=== PATIENT | male | born 1955 | race Asian ===

== ENCOUNTER 2020-12-03 13:07 | Inpatient (IN) | payer OTHER, BC ==
[2020-12-03 13:13] VITALS: BMI 27.7
[2020-12-03 14:02] LABS: BASO % 0.5 % (0-2.0); EOS % 2.4 % (0-4.5); HEMATOCRIT 49.2 % (35.4-49); LYMPH % 19.9 % (8-40); MCH 31.1 pg (25.7-33.7); MCHC 34.6 g/dl (32.0-35.9); MEAN CELL VOLUME 89.7 fl (80-96); MEAN PLT VOLUME 8.7 fl (7.5-11.1); MONO % 9.4 % (3.8-10.2); NEUT % 67.8 % (42.8-82.8); PLATELET COUNT 158 K/MM3 (134-434); RBC 5.49 M/mm3 (4.00-5.60); RDW 13.4 % (11.9-15.9); WHITE BLOOD COUNT 10.2 K/mm3 (4.0-10.0)
[2020-12-03 14:40] LABS: POTASSIUM 4.2 mmol/L (3.5-5.1)
[2020-12-03 14:44] LABS: ALBUMIN 4.2 g/dl (3.4-5.0); BLOOD UREA NITROGEN 19.4 mg/dL (7-18); MAGNESIUM 2.1 mg/dL (1.8-2.4)
[2020-12-03 14:47] LABS: CREATININE 1.1 mg/dL (0.55-1.3); PHOSPHOROUS 4.1 mg/dL (2.5-4.9)
[2020-12-03 14:49] LABS: BILIRUBIN,TOTAL 0.6 mg/dL (0.2-1); TOT PROT 7.6 g/dl (6.4-8.2)
[2020-12-03 20:39] LABS: N-TERMINAL BNP 456.1 pg/ml (5-125)
[2020-12-04 08:27] LABS: BASO % 0.4 % (0-2.0); EOS % 3.8 % (0-4.5); HEMATOCRIT 48.6 % (35.4-49); HEMOGLOBIN 16.7 GM/dL (11.7-16.9); LYMPH % 20.6 % (8-40); MCH 31.3 pg (25.7-33.7); MCHC 34.3 g/dl (32.0-35.9); MEAN CELL VOLUME 91.3 fl (80-96); MEAN PLT VOLUME 9.3 fl (7.5-11.1); MONO % 11.8 % (3.8-10.2); NEUT % 63.4 % (42.8-82.8); PLATELET COUNT 138 K/MM3 (134-434); RBC 5.32 M/mm3 (4.00-5.60); RDW 13.3 % (11.9-15.9); WHITE BLOOD COUNT 7.3 K/mm3 (4.0-10.0)
[2020-12-04 08:51] LABS: POTASSIUM 4.3 mmol/L (3.5-5.1)
[2020-12-04 08:53] LABS: CALCIUM 9.1 mg/dL (8.5-10.1)
[2020-12-04 08:54] LABS: BLOOD UREA NITROGEN 21.2 mg/dL (7-18)
[2020-12-04 08:59] LABS: TOT PROT 7.3 g/dl (6.4-8.2)
[2020-12-04] MEDS ORDERED: PNEUMOC 13-VAL CONJ-DIP CRM/PF 0.5 ML DISP.SYRIN IM ONE (10:00)
[2020-12-04] MEDS ORDERED: METOPROLOL TARTRATE 50 MG TABLET (FP) PO SCH (10:00)
[2020-12-04] MEDS: ASPIRIN COATED 81 MG TABLET.EC PO SCH (10:48)
[2020-12-04] MEDS: ENOXAPARIN NA (PORCINE) 40 MG/0.4 ML DISP.SYRIN SQ SCH (10:48)
[2020-12-04] MEDS: SACUBITRIL/VALSARTAN 24 MG-26 MG TABLET PO SCH ×2 (12:39→22:13)
[2020-12-04] MEDS: metFORMIN HCL 500 MG TABLET (FP) PO SCH (16:43)
[2020-12-04] MEDS: INSULIN (NOVOLOG) ASPART 100 UNITS/ML 10ML VIAL SQ SCH (16:43)
[2020-12-04] MEDS: sitaGLIPtin PHOSPHATE 50 MG TABLET PO SCH (17:56)
[2020-12-04] MEDS ORDERED: PATIENT'S OWN MEDICATION (NON-FORMULARY) (Sitagliptin Phos/Metformin Hcl [Janumet 50-1,000 PO SCH (22:00)
[2020-12-04] MEDS: ATORVASTATIN CA 10 MG TABLET (FP) PO SCH (22:13)
[2020-12-05] MEDS: sitaGLIPtin PHOSPHATE 50 MG TABLET PO SCH ×2 (06:18→17:23)
[2020-12-05] MEDS: metFORMIN HCL 500 MG TABLET (FP) PO SCH ×2 (06:18→17:23)
[2020-12-05] MEDS: INSULIN (NOVOLOG) ASPART 100 UNITS/ML 10ML VIAL SQ SCH ×3 (06:19→17:24)
[2020-12-05] MEDS: ASPIRIN COATED 81 MG TABLET.EC PO SCH (09:27)
[2020-12-05] MEDS: ENOXAPARIN NA (PORCINE) 40 MG/0.4 ML DISP.SYRIN SQ SCH (09:27)
[2020-12-05] MEDS: SACUBITRIL/VALSARTAN 24 MG-26 MG TABLET PO SCH ×2 (09:28→21:19)
[2020-12-05] MEDS ORDERED: PT OWN MED DRAWER 7, Y5N ONE (20:57)
[2020-12-05] MEDS: ATORVASTATIN CA 10 MG TABLET (FP) PO SCH (21:19)
[2020-12-06] MEDS: sitaGLIPtin PHOSPHATE 50 MG TABLET PO SCH ×2 (06:13→17:21)
[2020-12-06] MEDS: metFORMIN HCL 500 MG TABLET (FP) PO SCH ×2 (06:13→17:21)
[2020-12-06] MEDS: INSULIN (NOVOLOG) ASPART 100 UNITS/ML 10ML VIAL SQ SCH ×3 (06:13→17:08)
[2020-12-06] MEDS ORDERED: PT OWN MED DRAWER 7, Y5N ONE ×2 (09:31→15:17)
[2020-12-06] MEDS: ENOXAPARIN NA (PORCINE) 40 MG/0.4 ML DISP.SYRIN SQ SCH (09:34)
[2020-12-06] MEDS: ASPIRIN COATED 81 MG TABLET.EC PO SCH (09:34)
[2020-12-06] MEDS: SACUBITRIL/VALSARTAN 24 MG-26 MG TABLET PO SCH (09:34)
[2020-12-06] MEDS ORDERED: EPLERENONE 25 MG TABLET PO SCH (12:00)
[2020-12-06 18:12] VITALS: BP 112/65; PULSE 47; TEMP 98.1
[2020-12-07] MEDS ORDERED: VANCOMYCIN 1 GM in D5W (PRE-DOCKED) 1,000 MG/250 ML IVPB ONE (08:00)
== END 2020-12-06 18:45 | disposition short-term general hospital (02) | DRG 309 ==
LOC: JER 13:07 → JERBED 13:46 → J4W 18:28
PROVIDERS: ADMIT Internal Medicine; ATTEND Internal Medicine
DX: I45.2 Bifascicular block (principal); I50.22 Chronic systolic (congestive) heart failure; M62.82 Rhabdomyolysis; I44.1 Atrioventricular block, second degree; R00.1 Bradycardia, unspecified; I10 Essential (primary) hypertension; I42.9 Cardiomyopathy, unspecified; M54.12 Radiculopathy, cervical region; E11.9 Type 2 diabetes mellitus without complications; R55 Syncope and collapse; E78.5 Hyperlipidemia, unspecified; R42 Dizziness and giddiness
CPT/HCPCS: 36415; 71045-TC-FY; 80053; 82550; 82553; 82962; 83735; 83880; 84100; 84439; 84443; 84484; 85025; 93005; 93010; 93225; 93226; 93306-TC; 99285-25; C9803; U0003

== ENCOUNTER 2021-12-08 19:55 | Emergency (ER) | payer OTHER, BC ==
[2021-12-08 20:02] VITALS: BP 138/84; PULSE 71; TEMP 98; BMI 27.4
== END 2021-12-08 22:03 | disposition home or self-care (01) ==
LOC: JERFT 19:55
DX: S00.01XA Abrasion of scalp, initial encounter (principal); S80.02XA Contusion of left knee, initial encounter; S80.212A Abrasion, left knee, initial encounter; W22.8XXA Striking against or struck by other objects, initial encounter
CPT/HCPCS: 73562-TC-LT-FY; 99283-25

== ENCOUNTER 2022-06-08 23:10 | Observation (INO) | payer OTHER, BC ==
[2022-06-08] MEDS ORDERED: ACETAMINOPHEN 1000 MG/100 ML BAG IVPB ONE (23:45)
[2022-06-08] MEDS ORDERED: ACETAMINOPHEN INJECTION 100 ML IVPB ONE (23:56)
[2022-06-09 00:24] LABS: BASO % 0.6 % (0-2.0); EOS % 4.3 % (0-4.5); HEMATOCRIT 48.8 % (35.4-49); HEMOGLOBIN 16.6 GM/dL (11.7-16.9); LYMPH % 28.4 % (8-40); MCH 31.3 pg (25.7-33.7); MEAN PLT VOLUME 8.4 fl (7.5-11.1); MONO % 12.8 % (3.8-10.2); NEUT % 53.9 % (42.8-82.8); PLATELET COUNT 141 10^3/uL (134-434); RDW 13.7 % (11.9-15.9); WHITE BLOOD COUNT 7.5 K/mm3 (4.0-10.0)
[2022-06-09] MEDS ORDERED: ASPIRIN 81 MG CHEWABLE TABLETS PO ONE ×2 (00:30→00:31)
[2022-06-09] MEDS ORDERED: ASPIRIN 81 MG CHEWABLE TABLETS ONE ×2 (00:34→10:39)
[2022-06-09 00:41] LABS: CHLORIDE 103 mmol/L (98-107); SODIUM 140 mmol/L (136-145)
[2022-06-09 00:43] LABS: CALCIUM 8.9 mg/dL (8.5-10.1)
[2022-06-09 00:44] LABS: ALBUMIN 4.1 g/dl (3.4-5.0); ANION GAP 9 MMOL/L (8-16); CO2 28 mmol/L (21-32); GLUCOSE,RANDOM 143 mg/dL (74-106)
[2022-06-09 00:47] LABS: CREATININE 1.1 mg/dL (0.55-1.3); SGOT/AST 30 U/L (15-37); SGPT/ALT 37 U/L (13-61)
[2022-06-09 00:48] LABS: TOT PROT 7.6 g/dl (6.4-8.2)
[2022-06-09 00:49] LABS: BILIRUBIN,TOTAL 0.5 mg/dL (0.2-1)
[2022-06-09 00:50] LABS: ALK PHOS 130 U/L (45-117)
[2022-06-09 00:52] LABS: N-TERMINAL BNP 133.4 pg/ml (5-125)
[2022-06-09] MEDS ORDERED: ATORVASTATIN CA 80 MG TABLET (FP) PO ONE (01:39)
[2022-06-09] MEDS ORDERED: ENOXAPARIN NA (PORCINE) 80 MG/0.8 ML DISP.SYRIN SQ ONE ×4 (01:40→13:40)
[2022-06-09] MEDS ORDERED: ATORVASTATIN CA 80 MG TABLET (FP) ONE ×2 (01:46→22:00)
[2022-06-09] MEDS ORDERED: ATORVASTATIN CA 10 MG TABLET (FP) PO ONE (01:57)
[2022-06-09] MEDS ORDERED: ATORVASTATIN CA 10 MG TABLET (FP) ONE (01:57)
[2022-06-09 02:02] LABS: ACTIVATED PTT 35.2 SECONDS (25.2-36.5); INR 1.02 (0.83-1.09); PROTHROMBIN TIME (PATIENT) 11.7 SEC (9.7-13.0)
[2022-06-09] MEDS ORDERED: ASPIRIN COATED 81 MG TABLET.EC PO SCH (10:00)
[2022-06-09] MEDS ORDERED: PATIENT'S OWN MEDICATION (NON-FORMULARY) (Empagliflozin [Jardiance] 10 MG Tablet) PO SCH (10:00)
[2022-06-09] MEDS ORDERED: SACUBITRIL/VALSARTAN 49 MG-51 MG TABLET PO SCH (10:00)
[2022-06-09 10:32] LABS: BASO % 0.6 % (0-2.0); EOS % 3.9 % (0-4.5); HEMATOCRIT 48.5 % (35.4-49); HEMOGLOBIN 16.5 GM/dL (11.7-16.9); LYMPH % 21.5 % (8-40); MEAN CELL VOLUME 90.9 fl (80-96); MEAN PLT VOLUME 8.6 fl (7.5-11.1); MONO % 9.4 % (3.8-10.2); NEUT % 64.6 % (42.8-82.8); PLATELET COUNT 139 10^3/uL (134-434); RBC 5.33 M/mm3 (4.00-5.60); RDW 13.7 % (11.9-15.9); WHITE BLOOD COUNT 6.6 K/mm3 (4.0-10.0)
[2022-06-09] MEDS ORDERED: metoPROLOL SUCCINATE 25 MG TAB.SR.24H (FP) PO ONE (10:39)
[2022-06-09] MEDS: metoPROLOL SUCCINATE 25 MG TAB.SR.24H (FP) PO SCH (10:45)
[2022-06-09] MEDS: ASPIRIN 81 MG CHEWABLE TABLETS PO SCH (10:45)
[2022-06-09 10:50] LABS: CHLORIDE 106 mmol/L (98-107); SODIUM 139 mmol/L (136-145)
[2022-06-09 10:53] LABS: ANION GAP 8 MMOL/L (8-16); BLOOD UREA NITROGEN 15.5 mg/dL (7-18); CO2 25 mmol/L (21-32); GLUCOSE,RANDOM 162 mg/dL (74-106)
[2022-06-09 10:55] LABS: CHOLESTEROL 143 mg/dL (50-200)
[2022-06-09 10:56] LABS: CREATININE 0.9 mg/dL (0.55-1.3); SGOT/AST 29 U/L (15-37); TRIGLYCERIDES 153 mg/dL (0-150)
[2022-06-09 10:57] LABS: LDL CHOLESTEROL (ONLY SJRH) 79 mg/dL (5-100); SGPT/ALT 37 U/L (13-61)
[2022-06-09 10:58] LABS: BILIRUBIN,TOTAL 0.8 mg/dL (0.2-1); HDL CHOLESTEROL 46 mg/dL (40-60); TOT PROT 7.1 g/dl (6.4-8.2)
[2022-06-09 11:15] LABS: ALK PHOS 89 U/L (45-117)
[2022-06-09] MEDS: EPLERENONE 25 MG TABLET PO SCH (11:23)
[2022-06-09] MEDS: ENOXAPARIN NA (PORCINE) 80 MG/0.8 ML DISP.SYRIN SQ SCH (13:44)
[2022-06-09] MEDS ORDERED: ATORVASTATIN CA 80 MG TABLET (FP) PO SCH (22:00)
[2022-06-09] MEDS: SACUBITRIL/VALSARTAN 49 MG-51 MG TABLET PO SCH (22:03)
[2022-06-09 23:31] VITALS: BMI 28.3
[2022-06-10] MEDS: ENOXAPARIN NA (PORCINE) 80 MG/0.8 ML DISP.SYRIN SQ SCH ×2 (01:00→14:54)
[2022-06-10] MEDS ORDERED: INSULIN (NOVOLOG) ASPART 100 UNITS/ML 10ML VIAL SQ SCH (07:00)
[2022-06-10] MEDS: ASPIRIN 81 MG CHEWABLE TABLETS PO SCH (09:38)
[2022-06-10] MEDS: metoPROLOL SUCCINATE 25 MG TAB.SR.24H (FP) PO SCH (09:38)
[2022-06-10] MEDS: EPLERENONE 25 MG TABLET PO SCH (09:39)
[2022-06-10] MEDS: SACUBITRIL/VALSARTAN 49 MG-51 MG TABLET PO SCH (09:39)
[2022-06-10 15:23] VITALS: RESP 18
[2022-06-10 18:41] VITALS: BP 140/79; PULSE 69; TEMP 98.1
== END 2022-06-10 18:54 | disposition home or self-care (01) ==
LOC: JER 23:10 → JERBED 06-09 05:01 → J4W 06-09 23:23
PROVIDERS: ADMIT Internal Medicine; ATTEND Internal Medicine
PROC: 3E033GC Introduction of Other Therapeutic Substance into Peripheral Vein, Percutaneous Approach (ICD-10-PCS; principal; 2022-06-09)
PROC: 3E013GC Introduction of Other Therapeutic Substance into Subcutaneous Tissue, Percutaneous Approach (ICD-10-PCS; 2022-06-09)
DX: R07.89 Other chest pain (principal); I10 Essential (primary) hypertension; I25.10 Atherosclerotic heart disease of native coronary artery without angina pectoris; I44.1 Atrioventricular block, second degree; I42.9 Cardiomyopathy, unspecified; I25.2 Old myocardial infarction; F41.9 Anxiety disorder, unspecified; M54.2 Cervicalgia; G89.29 Other chronic pain; R00.1 Bradycardia, unspecified; R42 Dizziness and giddiness; S80.212A Abrasion, left knee, initial encounter; S80.02XA Contusion of left knee, initial encounter; S00.01XA Abrasion of scalp, initial encounter; X58.XXXA Exposure to other specified factors, initial encounter; Y93.9 Activity, unspecified; Y92.9 Unspecified place or not applicable; Z86.79 Personal history of other diseases of the circulatory system; Z86.73 Personal history of transient ischemic attack (TIA), and cerebral infarction without residual deficits; Z79.82 Long term (current) use of aspirin; Z79.84 Long term (current) use of oral hypoglycemic drugs
CPT/HCPCS: 0241U-QW; 36415; 71045-TC-FY; 80053; 80061; 82962; 83036; 83880; 84484; 85025; 85610; 85730; 93005; 93010; 96372; 96374; 99285-25; G0378

== ENCOUNTER 2024-10-12 04:14 | Day surgery (SDC) | payer OTHER, BC ==
[2024-10-11 09:06] VITALS: BMI 27.7
[2024-10-12] MEDS ORDERED: CEFOXITIN SODIUM 2 GM IVPB ONE (07:14)
[2024-10-12] MEDS ORDERED: HEPARIN NA (PORCINE) 5,000 UNITS/ML 1ML VIAL ONE (07:14)
[2024-10-12] MEDS ORDERED: BUPIVACAINE HCL/PF 0.25% (2.5MG/ML) 10 ML VIAL ONE (07:14)
[2024-10-12] MEDS ORDERED: PROPOFOL 20 ML ONE (07:38)
[2024-10-12] MEDS ORDERED: LIDOCAINE HCL/PF 2% SDV 5ML VIAL ONE (07:38)
[2024-10-12] MEDS ORDERED: ROCURONIUM BROMIDE 50 MG/5 ML SYRINGE ONE (07:38)
[2024-10-12] MEDS ORDERED: BUPIVACAINE HCL/PF 0.5% (5MG/ML) 10 ML VIAL ONE (07:50)
[2024-10-12] MEDS ORDERED: MIDAZOLAM HCL 2 MG/2 ML SINGLE DOSE VIAL ONE (08:20)
[2024-10-12] MEDS ORDERED: ceFAZolin SODIUM 1 GM VIAL ONE (08:32)
[2024-10-12] MEDS: ceFAZolin SODIUM 1 GM VIAL IVPB ONE (08:37)
[2024-10-12] MEDS: BUPIVACAINE HCL/PF 0.5% (5 MG/ML) 30 ML VIAL IJ ONE ×2 (08:47)
[2024-10-12] MEDS ORDERED: SUGAMMADEX SODIUM 200 MG/2 ML VIAL ONE (10:05)
[2024-10-12] MEDS ORDERED: ONDANSETRON 4 MG/2 ML VIAL ONE (10:05)
[2024-10-12] MEDS ORDERED: oxyCODONE HCL 5 MG TABLET PO PRN (10:30)
[2024-10-12] MEDS ORDERED: ONDANSETRON 4 MG/2 ML VIAL IVPUSH PRN (10:30)
[2024-10-12 12:21] VITALS: RESP 16
[2024-10-12 14:32] VITALS: BP 115/59; PULSE 77; TEMP 97.8
== END 2024-10-12 14:30 | disposition home or self-care (01) ==
LOC: JASU-SURG 04:14
PROVIDERS: ATTEND Surgery
PROC: 0FT44ZZ Resection of Gallbladder, Percutaneous Endoscopic Approach (ICD-10-PCS; principal; 2024-10-12 08:00)
DX: K80.10 Calculus of gallbladder with chronic cholecystitis without obstruction (principal)
CPT/HCPCS: 82010; 82962; 86850; 86900; 86901; 88304-TC; 94760; J1644

== ENCOUNTER 2024-12-20 19:49 | Emergency (ER) | payer OTHER, BC ==
[2024-12-20] MEDS ORDERED: NOREPINEPHRINE BITARTRATE 4 MG/4 ML ML IV ONE (20:03)
[2024-12-20 20:12] VITALS: BMI 25.1
[2024-12-20] MEDS: NOREPINEPHRINE BITARTRATE/D5W 8 MG/250 ML BAG IVPB SCH (20:29)
[2024-12-20 20:56] LABS: ABSOLUTE IMMATURE GRANULOCYTES 0.07 x10^3/uL (0.0-0.031); BASOPHILS # 0.02 x10^3/uL (0.01-0.08); EOSINOPHIL % 0.4 % (0.8-7.0); EOSINOPHILS # 0.03 x10^3/uL (0.04-0.54); HEMATOCRIT 49.5 % (40.1-51.0); HEMOGLOBIN 15.2 g/dL (13.7-17.5); MCHC 30.7 g/dl (32.3-36.5); MEAN PLT VOLUME 11.8 fl (9.4-12.4); MONOCYTE # 0.98 x10^3/uL (0.30-0.82); MONOCYTE % 13.4 % (5.3-12.2); PLATELET COUNT # 112 x10^3/uL (163-337); RDW 14.2 % (12.2-16.6)
[2024-12-20 21:14] LABS: POTASSIUM 3.8 mmol/L (3.5-5.1)
[2024-12-20 21:16] LABS: CALCIUM 8.9 mg/dL (8.5-10.1)
[2024-12-20 21:17] LABS: ALBUMIN 3.1 g/dl (3.4-5.0); BLOOD UREA NITROGEN 17.8 mg/dL (7-18)
[2024-12-20 21:20] LABS: CREATININE 1.6 mg/dL (0.55-1.3)
[2024-12-20 21:22] LABS: BILIRUBIN,TOTAL 0.5 mg/dL (0.2-1); TOT PROT 6.2 g/dl (6.4-8.2)
[2024-12-20 21:48] LABS: LACTIC ACID 16.8 mmol/L (0.4-2.0)
[2024-12-20 22:15] VITALS: BP 115/74; PULSE 82
[2024-12-20 22:16] VITALS: RESP 20
[2024-12-20] MEDS ORDERED: MORPHINE SULFATE/0.9% NACL/PF 100 MG/100 ML BAG ONE (22:29)
[2024-12-20] MEDS: MORPHINE SULFATE/0.9% NACL/PF 100 MG/100 ML BAG IVPB SCH (23:03)
== END 2024-12-21 02:30 | disposition expired ==
LOC: JER 19:49
PROC: 5A12012 Performance of Cardiac Output, Single, Manual (ICD-10-PCS; principal; 2024-12-20)
DX: I46.9 Cardiac arrest, cause unspecified (principal)
CPT/HCPCS: 36415; 80053; 83605; 84484; 85025; 93005; 93010; 99285-25